=== PATIENT | male | born 1940 | race Caucasian/White ===

== ENCOUNTER 2017-01-12 10:07 | Observation (INO) | payer MEDICARE, MEDICAID ==
[2017-01-12] VITALS (13 sets, daily range): BP systolic 122–171; BP diastolic 8–96; PULSE 67–96; TEMP 98.4
[~2017-01-12] VITALS: Ht 175.3 cm; Wt 90.9 kg
[~2017-01-12 10:07] MED LIST: DULERA1 ARO IH; GLUCOPHAGE500 MG/TAB PO; MONODOX100 PO; PREDNISONE10 MG PO; RT SPIRIVA18 MCG IH; ZESTRIL 10MG10 MG PO; ZYLOPRIM 300MG300 MG PO
[2017-01-12 11:09] LABS: PROTHROMBIN TIME 11.1 SECONDS (9.7-12.8)
[2017-01-12 11:13] LABS: HEMATOCRIT 45.1 % (42.0-52.0); HEMOGLOBIN 13.8 g/dl (13.5-18.0); MEAN CELL VOLUME 104 fl (80.0-100.0); MEAN CORPUSCULAR HEMOGLOBIN 32 pg (27.0-31.0); MEAN CORPUSCULAR HGB CONC 31 g/dl (33.0-37.0); MEAN PLATELET VOLUME 10.8 fl (7.4-10.4); PLATELET COUNT 209 K/mm3 (130-400); RED BLOOD COUNT 4.33 M/mm3 (4.20-5.60); REDCELL DISTRIBUTION WIDTH-CV 13.9 % (11.5-14.5); WHITE BLOOD COUNT 6.2 K/mm3 (4.8-10.8)
[2017-01-12 11:17] LABS: CREATININE, serum 1.09 mg/dL (0.66-1.25)
[2017-01-12] MEDS ORDERED: VENTOLIN0.09 MG IH (11:21)
[2017-01-12] MEDS ORDERED: PREDNISONE 5MG5 MG PO (11:22)
[2017-01-12] MEDS ORDERED: INCRUSE EL62.5 MCG/A IH (11:22)
[2017-01-12] MEDS ORDERED: RT ALBUTER2.5 MG/0.5 IH (11:28)
[2017-01-12] MEDS ORDERED: ATROVENT I0.2 MG/1 M IH (11:29)
[2017-01-12 18:53] LABS: ARTERIAL BLD GAS O2 SATURATION 94.4 % (92-100); ARTERIAL BLD GAS TCO2 CT 32.2; ARTERIAL BLOOD GAS HCO3 30.2 meq/L (22-26); ARTERIAL BLOOD GAS PO2 79.5 mmHg (80-100); ARTERIAL BLOOD GAS pH 7.29 (7.35-7.45)
[2017-01-12 18:54] LABS: ALLEN TEST YES; ALLENS TEST RESULT PASS; ATS? YES
[2017-01-12 22:07] LABS: PH 5 (5-8); SQUAMOUS EPITHELIAL None Seen /hpf; URINE APPEARANCE Clear; URINE BACTERIA Rare /hpf; URINE BILIRUBIN Negative (NEGATIVE); URINE BLOOD Negative (NEGATIVE); URINE COLOR Yellow; URINE GLUCOSE Negative (NEGATIVE); URINE KETONE Trace (NEGATIVE); URINE RBC 0-2 /hpf; URINE UROBILINOGEN Negative (NEGATIVE); URINE WBC 0-2 /hpf
[2017-01-13 00:19] VITALS: BP 111/57; PULSE 72; TEMP 97.8
[2017-01-13 00:33] LABS: BASO % 0.4 % (0.0-2.0); EOS # 0.1 (0.0-0.7); EOS % 1.6 % (0-4.0); GRAN # 5.7 (1.4-6.5); GRAN % 77.5 % (42.2-75.2); HEMATOCRIT 38.8 % (42.0-52.0); HEMOGLOBIN 11.8 g/dl (13.5-18.0); LYMPH # 0.8 (1.2-3.4); LYMPH % 10.6 % (20.0-51.0); MEAN CELL VOLUME 105 fl (80.0-100.0); MEAN CORPUSCULAR HEMOGLOBIN 32 pg (27.0-31.0); MEAN CORPUSCULAR HGB CONC 30 g/dl (33.0-37.0); MEAN PLATELET VOLUME 11.1 fl (7.4-10.4); MONO # 0.7 (0.1-0.6); MONO % 9.8 % (1.7-9.3); PLATELET COUNT 148 K/mm3 (130-400); RED BLOOD COUNT 3.71 M/mm3 (4.20-5.60); REDCELL DISTRIBUTION WIDTH-CV 13.9 % (11.5-14.5); WHITE BLOOD COUNT 7.4 K/mm3 (4.8-10.8)
[2017-01-13 00:43] LABS: ADJUSTED CALCIUM 9.1 mg/dL (8.4-10.2); ALBUMIN 3.8 gm/dL (3.5-5.0); BILIRUBIN,TOTAL 1.3 mg/dL (0.0-1.0); CALCIUM 8.9 mg/dL (8.4-10.2); POTASSIUM 4.4 mmol/L (3.4-5.0); TOTAL PROTEIN 6.6 gm/dL (6.4-8.2)
[2017-01-13 04:25] VITALS: BP 135/56; PULSE 88; TEMP 97.7
[2017-01-13 09:28] VITALS: BP 105/44; PULSE 72; TEMP 97.4
[2017-01-13 11:39] VITALS: BP 133/55; PULSE 70; TEMP 97.5
[2017-01-13] MEDS ORDERED: PREDNISONE20 MG PO (13:11)
[2017-01-13] MEDS ORDERED: FLOMAX 0.40.4 MG/CAP PO (13:12)
== END 2017-01-13 17:21 | disposition home or self-care (01) ==
LOC: MEDICAL 10:07 → EUO 10:07 → MEDICAL 20:44 → EUO 20:45 → MEDICAL 01-13 17:21
PROVIDERS: Nurse Practitioner Family; Radiology Diagnostic Radiology
DX: I74.3 Embolism and thrombosis of arteries of the lower extremities (principal); J44.9 Chronic obstructive pulmonary disease, unspecified; I10 Essential (primary) hypertension; E11.9 Type 2 diabetes mellitus without complications; M10.9 Gout, unspecified; I73.9 Peripheral vascular disease, unspecified; F17.210 Nicotine dependence, cigarettes, uncomplicated
CPT/HCPCS: OP; C1725; C1769; C1876; C2628; G0378; G0379; J1644; J1815; J7120; J7512; Q9967

== ENCOUNTER 2017-01-23 13:43 | Emergency (ER) | payer MEDICARE, MEDICAID ==
[~2017-01-23] VITALS: Ht 175.3 cm; Wt 90.9 kg
[~2017-01-23 13:43] MED LIST changes: +ATROVENT I0.2 MG/1 M IH; +FLOMAX 0.40.4 MG/CAP PO; +INCRUSE EL62.5 MCG/A IH; +PREDNISONE 5MG5 MG PO; +PREDNISONE20 MG PO; +RT ALBUTER2.5 MG/0.5 IH; +VENTOLIN0.09 MG IH
[2017-01-23 13:46] VITALS: TEMP 98.5
[2017-01-23] MEDS ORDERED: RT ALBUTER2.5 MG/0.5 IH (14:14)
[2017-01-23] MEDS ORDERED: ZYLOPRIM 300MG300 MG PO (14:14)
[2017-01-23] MEDS ORDERED: PROAIR HFA0.09 MG/AC IH (14:14)
[2017-01-23] MEDS ORDERED: PRINIVIL10 MG PO (14:15)
[2017-01-23] MEDS ORDERED: ATROVENT I0.2 MG/1 M IH (14:15)
[2017-01-23] MEDS ORDERED: INCRUSE EL62.5 MCG/A IH (14:16)
[2017-01-23] MEDS ORDERED: FLOMAX 0.40.4 MG/CAP PO (14:16)
[2017-01-23] MEDS ORDERED: GLUCOPHAGE500 MG/TAB PO (14:17)
[2017-01-23] MEDS ORDERED: LASIX 40MG TABL40 MG PO (15:15)
[2017-01-23 15:39] VITALS: BP 121/75; PULSE 76
== END 2017-01-23 15:40 | disposition home or self-care (01) ==
LOC: COL.ER 13:43
DX: R60.0 Localized edema (principal); E11.9 Type 2 diabetes mellitus without complications; Z79.84 Long term (current) use of oral hypoglycemic drugs; I73.9 Peripheral vascular disease, unspecified; F17.210 Nicotine dependence, cigarettes, uncomplicated; Z98.62 Peripheral vascular angioplasty status; J44.9 Chronic obstructive pulmonary disease, unspecified

== ENCOUNTER → 2017-04-06 | Outpatient (CLI) | payer MEDICARE, MEDICAID ==
[~2017-04-06] MED LIST changes: +LASIX 40MG TABL40 MG PO; +PRINIVIL10 MG PO; +PROAIR HFA0.09 MG/AC IH
== END ==
LOC: COL.VAS 12:18
DX: I08.3 Combined rheumatic disorders of mitral, aortic and tricuspid valves (principal); I28.8 Other diseases of pulmonary vessels

== ENCOUNTER → 2017-04-25 | Outpatient (CLI) | payer MEDICARE, MEDICAID | LOC: COL.VAS 08:39 | DX: I77.1 Stricture of artery (principal); M79.605 Pain in left leg; R60.0 Localized edema; Z96.89 Presence of other specified functional implants ==

== ENCOUNTER → 2017-10-10 | Outpatient (CLI) | payer MEDICARE, MEDICAID | LOC: COL.VAS 09:31 | DX: I08.1 Rheumatic disorders of both mitral and tricuspid valves (principal) ==

== ENCOUNTER 2018-06-08 05:34 | Observation (INO) | payer MEDICARE, MEDICAID ==
[~2018-06-08] VITALS: Ht 175.3 cm; Wt 80.8 kg
[~2018-06-08 05:34] MED LIST changes: +ALBUTEROL0.83 MG/ML IH; +ANORO IH; +ASPIRIN 81M81 MG/TA2 PO; +NICODERM C21 MG/PATC TD; +OMNICEF 300MG300 MG PO; +PLAVIX 75MG TAB75 MG PO; +TAMIFLU30 MG PO; +ZESTRIL 5MG5 MG PO
[2018-06-08 05:57] LABS: BASO % 0.5 % (0.0-2.0); EOS # 0.3 (0.0-0.7); GRAN # 2.9 (1.4-6.5); GRAN % 48.1 % (42.2-75.2); LYMPH # 1.9 (1.2-3.4); LYMPH % 31.8 % (20.0-51.0); MEAN CELL VOLUME 108 fl (80.0-100.0); MEAN CORPUSCULAR HGB CONC 30 g/dl (33.0-37.0); MEAN PLATELET VOLUME 11.6 fl (7.4-10.4); MONO # 0.9 (0.1-0.6); MONO % 14.1 % (1.7-9.3); PLATELET COUNT 193 K/mm3 (130-400); RED BLOOD COUNT 3.08 M/mm3 (4.20-5.60); REDCELL DISTRIBUTION WIDTH-CV 14.8 % (11.5-14.5)
[2018-06-08 05:58] LABS: HEMATOCRIT 33.2 % (42.0-52.0); HEMOGLOBIN 9.8 g/dl (13.5-18.0); MEAN CORPUSCULAR HEMOGLOBIN 32 pg (27.0-31.0)
[2018-06-08 06:07] LABS: CALCIUM 9.1 mg/dL (8.4-10.2); CREATININE, serum 1.15 mg/dL (0.66-1.25); POTASSIUM 4.7 mmol/L (3.4-5.0)
[2018-06-08] MEDS ORDERED: XANAX .25M0.25 MG/TA PO (06:34)
[2018-06-08] MEDS ORDERED: FLONASE NASAL S16 GM NS (06:35)
[2018-06-08 08:14] LABS: ARTERIAL BLD GAS O2 SATURATION 91.5 % (92-100); ARTERIAL BLD GAS TCO2 CT 35.5; ARTERIAL BLOOD GAS BASE EXCESS 6.1 (-2-2); ARTERIAL BLOOD GAS HCO3 33.5 meq/L (22-26); ARTERIAL BLOOD GAS PO2 68.5 mmHg (80-100); ARTERIAL BLOOD GAS pH 7.33 (7.35-7.45)
[2018-06-08 08:15] LABS: ARTERIAL BLOOD GAS PCO2 65.3 mmHg (35-45)
[2018-06-08 14:57] VITALS: BP 112/49; PULSE 72; TEMP 98.5
[2018-06-08 16:00] VITALS: BP 112/49; PULSE 72; TEMP 98.5
[2018-06-08 20:37] VITALS: BP 108/39; PULSE 77; TEMP 99
[2018-06-09 00:16] VITALS: BP 111/41; PULSE 66; TEMP 98.6
[2018-06-09 04:21] VITALS: BP 102/47; PULSE 63; TEMP 97.8
[2018-06-09 05:24] LABS: ARTERIAL BLD GAS O2 SATURATION 93.8 % (92-100); ARTERIAL BLD GAS TCO2 CT 31.1; ARTERIAL BLOOD GAS BASE EXCESS 2.7 (-2-2); ARTERIAL BLOOD GAS HCO3 29.4 meq/L (22-26); ARTERIAL BLOOD GAS PCO2 56.5 mmHg (35-45); ARTERIAL BLOOD GAS PO2 79.2 mmHg (80-100); ARTERIAL BLOOD GAS pH 7.33 (7.35-7.45)
[2018-06-09 08:03] LABS: BASO % 0.5 % (0.0-2.0); EOS # 0.1 (0.0-0.7); EOS % 2.5 % (0-4.0); GRAN % 45.2 % (42.2-75.2); LYMPH # 1.6 (1.2-3.4); LYMPH % 35.2 % (20.0-51.0); MEAN CELL VOLUME 109 fl (80.0-100.0); MEAN CORPUSCULAR HGB CONC 29 g/dl (33.0-37.0); MEAN PLATELET VOLUME 11.6 fl (7.4-10.4); MONO # 0.7 (0.1-0.6); MONO % 16.1 % (1.7-9.3); PLATELET COUNT 168 K/mm3 (130-400); RED BLOOD COUNT 2.58 M/mm3 (4.20-5.60); REDCELL DISTRIBUTION WIDTH-CV 14.7 % (11.5-14.5)
[2018-06-09 08:06] LABS: HEMATOCRIT 28.2 % (42.0-52.0); HEMOGLOBIN 8.1 g/dl (13.5-18.0); MEAN CORPUSCULAR HEMOGLOBIN 31 pg (27.0-31.0)
[2018-06-09 08:14] LABS: CALCIUM 8.3 mg/dL (8.4-10.2); CREATININE, serum 0.87 mg/dL (0.66-1.25); MAGNESIUM 1.9 mg/dL (1.6-2.3); POTASSIUM 3.9 mmol/L (3.4-5.0)
[2018-06-09 08:51] VITALS: BP 109/52; PULSE 62; TEMP 98
[2018-06-09] MEDS ORDERED: ATROVENT I0.2 MG/1 M IH (09:10)
[2018-06-09] MEDS ORDERED: ALBUTEROL0.83 MG/ML IH (09:11)
[2018-06-09] MEDS ORDERED: RT ADVAIR 228 DISKUS IH (09:13)
[2018-06-09] MEDS ORDERED: PREDNISONE20 MG PO (09:15)
[2018-06-09] MEDS ORDERED: Zithromax PO (09:16)
[2018-06-09] MEDS ORDERED: INCRUSE EL62.5 MCG/A IH (09:29)
[2018-06-09] MEDS ORDERED: ZITHROMAX 250M250 MG PO (09:29)
[2018-06-09] MEDS ORDERED: EUCERIN1 CRE TOP (09:56)
== END 2018-06-09 13:00 | disposition home or self-care (01) ==
LOC: COL.ER 05:34 → MEDICAL 08:57
PROVIDERS: Emergency Medicine; Family Medicine
DX: J44.1 Chronic obstructive pulmonary disease with (acute) exacerbation (principal); E11.9 Type 2 diabetes mellitus without complications; I25.2 Old myocardial infarction; I73.9 Peripheral vascular disease, unspecified; I11.0 Hypertensive heart disease with heart failure; I50.30 Unspecified diastolic (congestive) heart failure; I27.20 Pulmonary hypertension, unspecified; F17.210 Nicotine dependence, cigarettes, uncomplicated; N40.1 Benign prostatic hyperplasia with lower urinary tract symptoms; R33.9 Retention of urine, unspecified; Z95.0 Presence of cardiac pacemaker; Z79.84 Long term (current) use of oral hypoglycemic drugs; Z79.02 Long term (current) use of antithrombotics/antiplatelets; Z79.82 Long term (current) use of aspirin; Z83.3 Family history of diabetes mellitus
CPT/HCPCS: G0378; G8978-GP; G8979-GP; J0456; J0696; J1644; J7030; J7050; J7512